=== PATIENT | female | born 1995 | race Caucasian/White ===

== ENCOUNTER 2016-06-12 15:15 | Emergency (ER) | payer OTHER ==
[2016-06-12 15:23] VITALS: TEMP 98.5; BMI 26.4
--- NOTE | 2016-06-12 16:24 | PDOC ---
History of Present Illness - General History Source: Patient Exam Limitations: No Limitations - History of Present Illness Initial Comments: 06/12/16 16:57 The patient is a 20 year old female, with no significant past medical history, who presents to the emergency department with vaginal bleeding since approximately 1PM this afternoon. The patient reports that her period only ended approximately 10 days ago so she became concerned when she began bleeding today. 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 The patient denies nausea, vomiting or abdominal pain. The patient denies a past history of irregular menstrual cycles. LMP: approximately 06/03/2016 Allergies: None reported. Past Surgical History: None reported. Social History: Non smoker. Denies alcohol or drug use. <Maya Mercado - Last Filed: 06/12/16 17:00> <Camille Orr - Last Filed: 06/13/16 01:42> - General Chief Complaint: Vaginal Bleeding Stated Complaint: VAGINAL BLEEDING Time Seen by Provider: 06/12/16 16:23 Past History <Maya Mercado - Last Filed: 06/12/16 17:00> - Past Medical History Other medical history: NONE - Psycho/Social/Smoking Cessation Hx Anxiety: No Suicidal Ideation: No Smoking History: Never smoked Have you smoked in the past 12 months: No Information on smoking cessation initiated: No Hx Alcohol Use: No Drug/Substance Use Hx: No Substance Use Type: None <Camille Orr - Last Filed: 06/13/16 01:42> - Past Medical History Allergies/Adverse Reactions: Allergies Allergy/AdvReac Type Severity Reaction Status Date / Time No Known Allergies Allergy Verified 06/12/16 15:19 Home Medications: Ambulatory Orders NK [No Known Home Medication] 06/12/16 Review of Systems - Review of Systems Able to Perform ROS?: Yes Comments:: 06/12/16 16:57 GENERAL/CONSTITUTIONAL: No fever or chills. No weakness. HEAD, EYES, EARS, NOSE AND THROAT: No change in vision. No ear pain or discharge. No sore throat. CARDIOVASCULAR: No chest pain or shortness of breath. RESPIRATORY: No cough, wheezing, or hemoptysis. GASTROINTESTINAL: No nausea, vomiting, diarrhea or constipation. GENITOURINARY: +Vaginal bleeding. No dysuria, frequency, or change in urination. MUSCULOSKELETAL: No joint or muscle swelling or pain. No neck or back pain. SKIN: No rash. NEUROLOGIC: No headache, vertigo, loss of consciousness, or change in strength/ sensation. ENDOCRINE: No increased thirst. No abnormal weight change. HEMATOLOGIC/LYMPHATIC: No anemia, easy bleeding, or history of blood clots. ALLERGIC/IMMUNOLOGIC: No hives or skin allergy. <Maya Mercado - Last Filed: 06/12/16 17:00> *Physical Exam - Vital Signs Last Vital Signs Temp Pulse Resp BP Pulse Ox 98.5 F 88 18 135/86 100 06/12/16 15:20 06/12/16 15:20 06/12/16 15:20 06/12/16 15:20 06/12/16 15:20 - Physical Exam Comments: 06/12/16 17:00 GENERAL: Awake, alert, and fully oriented, in no acute distress. HEAD: No signs of trauma. EYES: PERRLA, EOMI, sclera anicteric, conjunctiva clear. ENT: Auricles normal inspection, hearing grossly normal, nares patent, oropharynx clear without exudates. Moist mucosa. NECK: Normal ROM, supple, no lymphadenopathy, JVD, or masses. LUNGS: Breath sounds equal, clear to auscultation bilaterally. No wheezes, and no crackles. HEART: Regular rate and rhythm, normal S1 and S2, no murmurs, rubs or gallops. ABDOMEN: Soft, nontender, normoactive bowel sounds. No guarding, no rebound. No masses. EXTREMITIES: Normal range of motion, no edema. No clubbing or cyanosis. No cords, erythema, or tenderness. NEUROLOGICAL: Cranial nerves II through XII intact. Normal speech, normal gait. SKIN: Warm, dry, normal turgor, no rashes or lesions noted. <Maya Mercado - Last Filed: 06/12/16 17:00> - Vital Signs Last Vital Signs Temp Pulse Resp BP Pulse Ox 98.5 F 88 18 135/86 100 06/12/16 15:20 06/12/16 15:20 06/12/16 15:20 06/12/16 15:20 06/12/16 15:20 - Physical Exam Comments: : No external lesions. Trace blood in the bvault. No CMT, no adnexal tenderness. No masses. <Camille Orr - Last Filed: 06/13/16 01:42> Medical Decision Making - Medical Decision Making Pt with very light bleeding. No anemic symptoms. UCG negative, UA wnl. 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 <Camille Orr - Last Filed: 06/13/16 01:42> *DC/Admit/Observation/Transfer - Attestations Scribe Attestion: 06/12/16 16:57 Documentation prepared by Maya Mercado, acting as medical billing representative for Camille Orr MD. <Maya Mercado - Last Filed: 06/12/16 17:00> - Discharge Dispostion Admit: No <Camille Orr - Last Filed: 06/13/16 01:42> Diagnosis at time of Disposition: Dysfunctional uterine bleeding - Discharge Dispostion Disposition: HOME Condition at time of disposition: Stable - Patient Instructions Printed Discharge Instructions: DI for Vaginal Bleeding Print Language: RUSSIAN - Post Discharge Activity Work/School Note: Back to Work
[2016-06-12 17:16] LABS: URINE APPEARANCE CLEAR; URINE BILIRUBIN NEGATIVE (NEGATIVE); URINE COLOR RED; URINE GLUCOSE (UA) NEGATIVE (NEGATIVE); URINE KETONE NEGATIVE (NEGATIVE); URINE LEUK ESTERASE NEGATIVE (NEGATIVE); URINE NITRITE NEGATIVE (NEGATIVE); URINE UROBILINOGEN NEGATIVE E.U./dl (0.2-1.0)
[2016-06-12 18:12] LABS: URINE BLOOD 3+ (NEGATIVE); URINE PROTEIN 1+ (NEGATIVE)
[2016-06-12 18:18] LABS: URINE MUCUS RARE; URINE RBC 5 /hpf (0-3); URINE WBC 7 /hpf (3-5)
[2016-06-12 18:37] VITALS: BP 122/80; PULSE 80
== END 2016-06-12 18:53 | disposition home or self-care (01) ==
LOC: JER 15:15
DX: N93.8 Other specified abnormal uterine and vaginal bleeding (principal)
CPT/HCPCS: 81003; 81015; 84703; 99282-25